=== PATIENT | female | born 1950 | race Caucasian/White ===

== ENCOUNTER → 2017-02-22 | Outpatient (CLI) | payer OTHER ==
[~2017-02-22] VITALS: Ht 154.9 cm; Wt 68.0 kg
[~2017-02-22] MED LIST: BONIVA150 MG PO; CALCIUM + D3 E1 EACH PO; CELEBREX100 MG PO; CRESTOR20 MG PO; FLONASE16 G1 BOTH NARES; FOLIC ACID1 MG PO; HUMIRA10 MG/0.2 SC; HUMIRA40 MG/0.1; HUMIRA40 MG/0.8 SC; LIDOCAINE700 MG TD; PERCOCET 10/1 TABLET; PROAIR RESPICL90 MCG IH; TYLENOL ARTHRI650 MG PO; ULTRAM50 MG PO; VITAMIN D31000 UNI2 PO; VOLTAREN 1% GE100 GM TP; ZYRTEC10 M2 PO
== END | disposition home or self-care (01) ==
LOC: AMB 10:50
DX: Z08 Encounter for follow-up examination after completed treatment for malignant neoplasm (principal); Z85.038 Personal history of other malignant neoplasm of large intestine; D12.2 Benign neoplasm of ascending colon; D12.3 Benign neoplasm of transverse colon; D12.4 Benign neoplasm of descending colon; K63.5 Polyp of colon; K62.1 Rectal polyp; Z80.0 Family history of malignant neoplasm of digestive organs; M06.9 Rheumatoid arthritis, unspecified; Z79.899 Other long term (current) drug therapy; M81.0 Age-related osteoporosis without current pathological fracture; E78.5 Hyperlipidemia, unspecified; R73.09 Other abnormal glucose; E55.9 Vitamin D deficiency, unspecified; F17.200 Nicotine dependence, unspecified, uncomplicated
CPT/HCPCS: 88305; 94640